=== PATIENT | male | born 1980 | race Two or more races ===

== ENCOUNTER 2024-07-31 22:57 | Emergency (ER) | payer OTHER ==
[~2024-07-31] VITALS: Ht 180.3 cm; Wt 104.3 kg
[2024-08-01] MEDS ORDERED: KETOROLAC TROMETHAMINE 60 MG VIAL IM STA (02:11)
[2024-08-01] MEDS ORDERED: DEXAMETHASONE SODIUM PHOSPHATE 4 MG/ML VIAL IM STA (02:12)
[2024-08-01] MEDS ORDERED: ACETAMINOPHEN 500 MG GEL..CAP PO STA (02:12)
== END 2024-08-01 03:04 | disposition home or self-care (01) ==
LOC: ER 22:59
DX: M25.562 Pain in left knee (principal)